=== PATIENT | male | born 1950 | race Caucasian/White ===

== ENCOUNTER 2016-06-25 13:29 | Emergency (ER) | payer MEDICARE, MEDICAID ==
[~2016-06-25] VITALS: Ht 188 cm; Wt 74.8 kg
[~2016-06-25 13:29] MED LIST: ALDACTONE 25MG25 MG PO; AMERINET CHOICE1 G1 IV; ASPIR-LOW81 MG PO; BACLOFEN 10MG T10 MG PO; BISAC-EVAC10 MG PR; CELEXA20 M1 PO; COGENTIN GENERIC1 MG PO; DEPAKOTE ER500 MG PO; DOCUSATE SODIU100 MG PO; KLONOPIN 0.5MG0.5 MG PO; LEVAQUIN500 MG PO; LIQUITEARS 15 M15 M1 OP; MIRALAX(PO17 GM/1 PA PO; MOTRIN 400MG.400 MG PO; MULTIPLE VITAMI1 T12 PO; NORCO 325 MG-51 TAB PO; PHENYTOIN 100M100 MG PO; REMERON15 MG PO; ROBAXIN 500 MG500 MG PO; TYLENOL ES500 MG PO; VITAMIN C100 M3 PO; ZANTAC 150150 MG PO
[2016-06-25] MEDS ORDERED: ARTIFICIAL TEARS OP (13:36)
[2016-06-25] MEDS ORDERED: BACLOFEN 10MG T10 MG PO (13:37)
[2016-06-25] MEDS ORDERED: COGENTIN GENERIC1 MG PO (13:37)
[2016-06-25] MEDS ORDERED: ASPIRIN 81MG TA81 MG PO (13:37)
[2016-06-25] MEDS ORDERED: CERTAVITE PO (13:38)
[2016-06-25] MEDS ORDERED: KLONOPIN 0.5MG0.5 MG NG (13:38)
[2016-06-25] MEDS ORDERED: DEPAKOTE 125MG125 MG PO ×2 (13:40→13:41)
[2016-06-25 13:41] LABS: LYMPH # 3.9 K/mm3 (0.7-4.5); LYMPH % 35.5 % (10-50)
[2016-06-25] MEDS ORDERED: COL-RITE250 MG PO (13:42)
[2016-06-25] MEDS ORDERED: IBUPROFEN400 MG PO (13:42)
--- NOTE | 2016-06-25 13:42 | Emergency Room Report ---
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 "JUST NOT RIGHT" IS WHAT THE NH REPORTED. EXTENSIVE NEUROLOGICALLY EFFECTIVE HISTORY. SEE CHART. 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 N Clinical Suspician of Infection? N Mental Status: 1 - Regular (Normal Baseline) Sepsis Risk:Low Sepsis Risk Have you (or family members/close friends) recently traveled outside the [place]? N If Yes, where/when: Have you had exposure to infectious disease within the past month? TB? Other? Specify: NH patient who is baseline contracted with dysphagia, nonverbal, hx PD, sent by NH for feeding difficulty noted today. Is on Dilantin and Depakote but no seizure activity reported. ROS obtained from EMS and NH staff, as well as ED staff who have cared for patient in past. Source patient, RN notes reviewed, EMS, snf records ALLERGIES Coded Allergies: No Known Allergies (06/25/16) Home Medications Reported Medications Spironolactone (Aldactone) 25 MG PO DAILY Acetaminophen (Tylenol XS 500MG) 500 MG PO Q4HP PRN PAIN,FEVER Divalproex Sodium (Depakote ER) 1,500 MG PO QHS Artificial Tear Ointment (Artificial Tears Eye Oint) 1 JENNY OP BID ASPIRIN (Aspirin) 81 MG PO DAILY BACLOFEN (Baclofen) 10 MG PO TID BENZTROPINE MESYLATE (COGENTIN 1MG TAB) 0.5 MG PO BID MULTIVITS W-MIN/FERROUS GLUC (Certa Nithin Liquid) 240 ML PO DAILY Clonazepam (Klonopin 0.5MG) 0.5 MG NG BID Divalproex Sodium (Depakote Sprinkle) 500 MG PO BID Divalproex Sodium (Depakote) 750 MG PO DAILY Docusate Sodium (Col-Rite) 250 MG PO BID IBUPROFEN MICRONIZED (IBUPROFEN 400MG) 400 MG PO Q8H PRN PAIN Mirtazapine (Remeron) 15 MG PO QHS PHENYTOIN SODIUM EXTENDED (Phenytoin Sodium Extended) 100 MG PO QAM Polyethylene Glycol 3350 (Miralax) 17 GM PO DAILY HYDROCODONE 5MG/APAP 325MG (Hydrocodon-Acetaminophen 5-325) 1 TAB PO BID Ranitidine Hcl (Zantac) 150 MG PO BID Spironolactone (Aldactone 100MG) 100 MG PO DAILY Ascorbic Acid (Vitamin C) 1,000 MG PO DAILY ARGININE/GLUTAMINE/CALCIUM HMB (Germán Packet) 1 PDR PO BID History Medical History General CAD? No Angina: No [place]: No Hypertension? Yes Hyperlipidemia? No CHF? Yes DVT? No PE? No COPD? No Asthma? No Anemia? Yes GERD? Yes Gastric ulcers? No GI Bleed? No Hernia? No Thyroid Problems? No Hypothyroidism? No CVA? No Seizures? Yes Diabetes? No Renal Insuffiency? No End Stage Renal Disease? No UTI? Yes Stones? No BPH? No GB Disease: No Nephritic Syndrome? No Asplenia? No Hepatitis? No Sickle Cell Disease? No Arthritis? No Migraines? No Cataracts? No Glaucoma? No MRSA? No HIV? No TB? No Anxiety? No Depression? Yes Cancer? No More? Yes Additional hx: DEMENTIA, AUTISTIC D/O, OSTEOARTHRITIS, PARKINSONS Immunization Hx Ped.Immunizations UTD Yes DT/Tetanus Unknown Flu Refused Pneumonia Unknown Surgical Hx Previous Surgery?Y Appendectomy Social History Smoking Hx Smoker: Never Smoker Tobacco: No Type N/A Packs/day N/A Are you/the child exposed to second-hand smoke: No Alcohol Alcohol: No Review of Systems All Other Systems Reviewed and Negative Psychiatric/Neurological see HPI Physical Exam Vital Signs Vital Signs Date Time Temp Pulse Resp B/P Pulse O2 O2 Flow FiO2 Ox Delivery Rate 06/25 1501 72 18 146/72 97 06/25 1416 70 18 129/80 97 06/25 1333 98.5 69 18 164/76 96 General Appearance normal appearance, WD/WN, no apparent distress (nonverbal) Neck normal inspection (patient contracted) Respiratory Status Yes: trachea midline, chest symmetrical, non tender chest. No: respiratory distress, tender on palpation, use of accessory muscles, pain on inspiration, pain on expiration, productive cough, non productive cough. Lung Sounds bilateral: normal breath sounds, lungs clear. Cardiovascular normal exam, regular rate/rhythm, no peripheral edema, no gallop, no JVD, no murmur, no rub Gastrointestinal normal bowel sounds, normal exam, non tender, soft, no organomegaly Extremities extremely contracted all four extremities, no gross edema, trauma, or asymmetry noted. Neurologic Alert, extremely contracted all four extremities, makes smacking movements with lips but no nystagmus; is nonverbal baseline. NIHSS very limited tool due to baseline gross neurological deficits today. Skin intact, normal color Medical Decision Making LABS/Meds/Orders Pt receiving controlled substance in ED? No Results/Orders Laboratory Tests 06/25/16 1335: Urine Color YELLOW, Urine Appearance CLOUDY, Urine pH 8.0, Ur Specific [place] 1.015, Urine Protein TRACE H, Urine Ketones NEGATIVE, Urine Blood 2+ H, Urine Nitrate NEGATIVE, Urine Bilirubin NEGATIVE, Urine Urobilinogen 0.2, Ur Leukocyte Esterase 1+ H, Urine RBC 3-5, Urine WBC 3-5, Ur Squamous Epith Cells 3-5, Amorphous Sediment 1+, Urine Bacteria 4+, Urine Mucus 2+, Urine Glucose NEGATIVE 06/25/16 1325: Sodium 145, Potassium 4.1, Chloride 106, Carbon Dioxide 31, BUN 39 H, Creatinine 0.4 L, Estimated Creat Clear 200, Estimated GFR (MDRD) 217, Glucose 71 L, Calcium 9.3, Total Bilirubin 0.2, AST 14 L, ALT 19, Alkaline Phosphatase 86, Creatine Kinase 25 L, CK-MB (CK-2) Rel Index 4.8 H, CK and CKMB Interp 1.2 , Troponin I 0.03, Total Protein 7.2, Albumin 2.8 L, Globulin 4.4 H, Albumin/ Globulin Ratio 0.6 L, WBC 11.1 H, RBC 4.51 L, Hgb 15.1, Hct 44.4, MCV 98.3 H , RDW 14.9, Plt Count 396, MPV 8.9, Gran % 41.4, Gran # 4.6, Lymphocytes % 35.5, Monocytes % 7.3, Eosinophils % 14.7 H, Basophils % 1.1, Lymphocytes # 3.9, Monocytes # 0.8, Eosinophils # 1.6 H, Basophils # 0.1, PUBS MCHC 33.9, MCH 33.3 H, Phenytoin 33.0 *H, Valproic Acid 44.3 L Current Medication Orders Sig/Salvador Start time Last Medication Dose Route Stop Time Status Admin Levofloxacin 0 .STK-MED ONE 06/25 1452 DC .ROUTE Levofloxacin 500 MG ONCE ONE 06/25 1445 DC 06/25 PO 06/25 1446 1456 Sodium Chloride 10 ML PRN PRN 06/25 1345 AC IV 06/26 1331 Orders Procedure Date/time Status DIET-NOTHING BY MOUTH 06/25 D Active ELECTROCARDIOGRAM REQUEST 06/25 1419 Active CULTURE, URINE 06/[address] HEAD REQ 06/25 1332 Complete IV SALINE LOCK 06/25 1332 Active VALPROIC ACID (DEPAKENE) 06/25 1332 Complete URINALYSIS/COMPLETE 06/25 1332 Complete PHENYTOIN (DILANTIN) 06/25 1332 Complete CBC WITH AUTO DIFF 06/25 1332 Complete CARDIAC ENZYMES 06/25 1332 Complete CHEM 12 PROFILE 06/25 1332 Complete 12 LEAD EKG-RAINA (INITIAL) 06/25 UNK Active CM/EKG CM/EKG EKG rate (60 NSSTchanges seen 06/18), NSR, rhythm, no ectopy, normal QRS, normal AK, normal EKG (occ APC's; NSST changes. ) XRAY/CT/US XRAY/CT/US XRAY chest XR interpretation by reviewed by me (report reviewed) Xray Results normal/NAD (poss R perihilar infiltrate) CT head CT interpretation by reviewed by me, discussed w/radiologist Time results known: 1406 CT Results no interval change since [address] Veras: grossly enlarged ventricles, no acute bleeding or infarct reported. Departure Departure Time of Disposition 1516 Disposition DC/XFER to an SNF Clinical Impression Primary Impression: Dilantin toxicity Qualifiers: Encounter type: initial encounter Injury intent: accidental or unintentional Qualified Code: T42.0X1A - Poisoning by hydantoin derivatives, accidental (unintentional), initial encounter Secondary Impressions: UTI (urinary tract infection) Qualifiers: Urinary tract infection type: acute cystitis Hematuria presence: without hematuria Qualified Code: N30.00 - Acute cystitis without hematuria Condition STABLE Referrals HEIKE MASTERS (Family) Patient Instructions Urinary Tract Infection Additional Instructions Call Dr. Bullock for further instruction regarding administration of Dilantin and when to recheck level; hold Dilantin for today unless otherwise advised by Dr. Bullock. Rx Levaquin. Has definite UTI and questionable pneumonia seen on CXR today. Discharge Counseling Counseled pt/family regarding diagnosis, test results, medications/RX, home care, follow up needs Prescriptions Current Visit Scripts Levofloxacin (Levaquin 500MG) 500 MG PO DAILY #6 TAB ED Critical Care Critical Care No at 1526
[2016-06-25] MEDS ORDERED: MIRTAZAPINE7.5 MG PO (13:43)
[2016-06-25] MEDS ORDERED: PHENYTOIN100 MG PO (13:44)
[2016-06-25] MEDS ORDERED: ZANTAC 150150 MG PO (13:44)
[2016-06-25] MEDS ORDERED: MIRALAX17 GM/PACK PO (13:44)
[2016-06-25] MEDS ORDERED: HYDROCODONE-APA1 TA1 PO (13:44)
[2016-06-25] MEDS ORDERED: VITAMIN C500 M1 PO (13:45)
[2016-06-25] MEDS ORDERED: ALDACTONE100 MG PO (13:45)
[2016-06-25] MEDS ORDERED: JUVEN1 PDR PO (13:45)
[2016-06-25 13:47] LABS: URINE BILIRUBIN - DIPSTICK NEGATIVE (NEG); URINE BLOOD 2+ (NEG)
[2016-06-25 13:50] LABS: HEMOGLOBIN 15.1 g/dL (14.1-18.0)
--- NOTE | 2016-06-25 14:33 | RADIOLOGY REPORT PS360 ---
CHEST-PORTABLE ORDERING PHYSICIAN : Analilia Carr MD PATIENT AGE: 65 years GENDER: Male INDICATION: AMS Elevated white count TECHNIQUE: AP portable upright chest COMPARISON: Previous 06/16/2015 CXR FINDINGS . With diaphragms only down to the anterior third rib on right and anterior fourth rib on left. Previous portable study showed inspiration doubt anterior fifth rib This poor inspiration crowds markings bilaterally and limits the study. With this there is accentuation of markings particularly at the perihilar regions along with mild accentuation of vascularity. Question skull, suspect right perihilar infiltrate/central infiltrate on this current study... Question minimal this minimal perihilar infiltrate may extend towards right infrahilar area.. Than may also be some associated atelectasis at here noting the more pronounced elevation right elevation right suggesting such.. The heart appears normal in size. Pulmonary vascularity appears slightly more generous. Upper normal. No pleural effusion. No chest wall abnormality. IMPRESSION: Suboptimal inspiration crowds markings a limited study However I am suspect of a perihilar infiltrate on right. Suspect minimal infiltrate and atelectasis right infrahilar towards medial right lower lobe. Clinical correlation required
--- NOTE | 2016-06-25 14:58 | RADIOLOGY REPORT PS360 ---
CT HEAD WITHOUT CONTRAST CT BONE WINDOWS ORDERING PHYSICIAN : Analilia Carr MD PATIENT AGE: 65 years GENDER: Male HISTORY: AMS minimal status changes rule out CVA Long-standing severe hydrocephalus PROCEDURE: Routine axial images head with brain & bone windows without contrast COMPARISON: Previous studies from June 2015 as well as 2004 utilized FINDINGS We again see severe dramatic hydrocephalus bilaterally similar to previous studies Again prominent thickening of overlying cerebral cortex from this long-standing hydrocephalus. Severely Dilated lateral ventricles. Prominent Dilated third ventricle noted as well. Same pattern was seen on previous studies and is long-standing. No acute hemorrhage or territorial infarct evident. No subdural /extra-axial collection. No mass lesion Posterior fossa appears stable and satisfactory CT Bone Windows: The skull is intact. Generous Bilateral ethmoid sinusitis again observed similar to previous 2016 exam- perhaps slight improvement Significant improvement at left left maxillary sinus since 2016. Only small residual air-fluid level left maxillary sinus. Medial displacement, medial bulge at the medial wall left maxillary sinus which which impaction narrows the left nasal airway. Mild mucosal thickening posterior right maxillary sinus.. Trace mucosal thickening frontal sinuses. Sphenoid sinuses unremarkable. Mastoid air cells and middle ear & IACs are unremarkable. IMPRESSION: 1. No acute intracranial findings. No significant change since last years study 2.. Dramatic, severe hydrocephalus similar to 2003 & 2015 CT. Findings compatible with long-standing aqueduct stenosis Severely dilated lateral as well as third ventricle Prominent diffuse cortical thinning overlying the these dilated ventricles. 3. Prominent Bilateral ethmoid sinusitis again evident. Slight improvement since 2016. 4. Improvement of previous acute left maxillary sinusitis since 2016, now with only scant residual air-fluid levelToday
[2016-06-25] MEDS ORDERED: LEVAQUIN500 MG PO (15:20)
[2016-06-25 15:46] VITALS: BP 122/78
== END 2016-06-25 15:34 ==
LOC: ER 13:29
PROVIDERS: Emergency Medicine
DX: T42.0X1A Poisoning by hydantoin derivatives, accidental (unintentional), initial encounter (principal); N30.00 Acute cystitis without hematuria; F41.9 Anxiety disorder, unspecified; I10 Essential (primary) hypertension; K21.9 Gastro-esophageal reflux disease without esophagitis; G20 Parkinson's disease; F02.80 Dementia in other diseases classified elsewhere, unspecified severity, without behavioral disturbance, psychotic disturbance, mood disturbance, and anxiety

== ENCOUNTER 2016-09-09 09:18 | Observation (INO) | payer MEDICARE, MEDICAID ==
[~2016-09-09] VITALS: Ht 188 cm; Wt 81.6 kg
[~2016-09-09 09:18] MED LIST changes: +ALDACTONE100 MG PO; +ARTIFICIAL TEARS OP; +ASPIRIN 81MG TA81 MG PO; +CERTAVITE PO; +COL-RITE250 MG PO; +DEPAKOTE 125MG125 MG PO; +HYDROCODONE-APA1 TA1 PO; +IBUPROFEN400 MG PO; +JUVEN1 PDR PO; +KLONOPIN 0.5MG0.5 MG NG; +MIRALAX17 GM/PACK PO; +MIRTAZAPINE7.5 MG PO; +PHENYTOIN100 MG PO; +VITAMIN C500 M1 PO
[2016-09-09 09:25] VITALS: BP 148/94
--- NOTE | 2016-09-09 09:34 | Emergency Room Report ---
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 N Clinical Suspician of Infection? N Mental Status: 1 - Regular (Normal Baseline) Sepsis Risk:Low Sepsis Risk Have you (or family members/close friends) recently traveled outside the [place]? N If Yes, where/when: Have you had exposure to infectious disease within the past month? N TB? Other? Specify: Source patient, RN notes reviewed, EMS, senior living records, old records Exam Limitations no limitations Comment pt with recent failed swallowing eval - pt with sig dysphagia - pt sent fro eval and prob g tube Cardiac Chest Pain Chest pain indicative of cardiac No Timing/Duration this morning Severity moderate ALLERGIES Coded Allergies: No Known Allergies (06/25/16) Home Medications Active Scripts Levofloxacin (Levaquin 500MG) 500 MG PO DAILY #6 TAB Prov: 06/25/16 Reported Medications Spironolactone (Aldactone) 25 MG PO DAILY Acetaminophen (Tylenol XS 500MG) 500 MG PO Q4HP PRN PAIN,FEVER Divalproex Sodium (Depakote ER) 1,500 MG PO QHS Artificial Tear Ointment (Artificial Tears Eye Oint) 1 JENNY OP BID ASPIRIN (Aspirin) 81 MG PO DAILY BACLOFEN (Baclofen) 10 MG PO TID BENZTROPINE MESYLATE (COGENTIN 1MG TAB) 0.5 MG PO BID MULTIVITS W-MIN/FERROUS GLUC (Certa Nithin Liquid) 240 ML PO DAILY Clonazepam (Klonopin 0.5MG) 0.5 MG NG BID Divalproex Sodium (Depakote Sprinkle) 500 MG PO BID Divalproex Sodium (Depakote) 750 MG PO DAILY Docusate Sodium (Col-Rite) 250 MG PO BID IBUPROFEN MICRONIZED (IBUPROFEN 400MG) 400 MG PO Q8H PRN PAIN Mirtazapine (Remeron) 15 MG PO QHS PHENYTOIN SODIUM EXTENDED (Phenytoin Sodium Extended) 100 MG PO QAM Polyethylene Glycol 3350 (Miralax) 17 GM PO DAILY HYDROCODONE 5MG/APAP 325MG (Hydrocodon-Acetaminophen 5-325) 1 TAB PO BID Ranitidine Hcl (Zantac) 150 MG PO BID Spironolactone (Aldactone 100MG) 100 MG PO DAILY Ascorbic Acid (Vitamin C) 1,000 MG PO DAILY ARGININE/GLUTAMINE/CALCIUM HMB (Germán Packet) 1 PDR PO BID History Medical History General CAD? No Angina: No [place]: No Hypertension? Yes Hyperlipidemia? No CHF? Yes DVT? No PE? No COPD? No Asthma? No Anemia? Yes GERD? Yes Gastric ulcers? No GI Bleed? No Hernia? No Thyroid Problems? No Hypothyroidism? No CVA? No Seizures? Yes Diabetes? No Renal Insuffiency? No End Stage Renal Disease? No UTI? Yes Stones? No BPH? No GB Disease: No Nephritic Syndrome? No Asplenia? No Hepatitis? No Sickle Cell Disease? No Arthritis? No Migraines? No Cataracts? No Glaucoma? No MRSA? No HIV? No TB? No Anxiety? No Depression? Yes Cancer? No More? Yes Additional hx: DEMENTIA, AUTISTIC D/O, OSTEOARTHRITIS, PARKINSONS Immunization Hx DT/Tetanus Unknown Flu Refused Pneumonia Unknown Surgical Hx Previous Surgery?Y Appendectomy Social History Smoking Hx Smoker: Former Smoker Tobacco: Yes Type Cigarettes Packs/day N/A Alcohol Alcohol: No Drugs none Review of Systems All Other Systems Reviewed and Negative Constitutional denies fever Eyes denies drainage ENT see HPI. Respiratory denies cough Cardiovascular denies chest pain, denies palpitations Gastrointestinal see HPI, denies vomiting, other Genitourinary denies: frequency. Musculoskeletal denies joint swelling Skin denies rash Psychiatric/Neurological denies headache, denies seizure Physical Exam Vital Signs Vital Signs Date Time Temp Pulse Resp B/P Pulse O2 O2 Flow FiO2 Ox Delivery Rate 09/09 1027 77 18 148/94 97 09/09 0925 98.1 77 18 148/94 97 - WBC >12,000 or <4,000 or 10% bands? 2 or more SIRS Criteria Met? B/P:148/94 MAP:112 Creatinine >2.0? UA output<0.5ml/kg/hr for 2 hrs? Platelet count >100,000? Lactate >2.0mmol/1? INR >1.2 or PTT > than 60 sec? Evidence of Organ Dysfunction? Provider documented clinical suspician of infection? N Sepsis Criteria Count: 0 Sepsis Risk: Low Sepsis Risk General Appearance no apparent distress Eye Exam - bilateral eye PERRL, bilateral eye EOMI Ear, Nose, Throat normal ENT inspection Neck limited range of motion Respiratory Status No: respiratory distress. Lung Sounds bilateral: decreased breath sounds. Cardiovascular regular rate/rhythm, systolic murmur Peripheral Pulses Pulses normal Yes Gastrointestinal soft, no organomegaly, no pulsatile mass, no guarding, no rebound Extremities no calf tenderness Strength 4 Upper Ext (L), 4 Upper Ext (R), 4 Lower Ext (L), 4 Lower Ext (R) Neurologic awake with no focal changes Reflexes Reflexes normal No Mental status no focal changes Skin intact Medical Decision Making LABS/Meds/Orders Pt receiving controlled substance in ED? No Results/Orders Laboratory Tests 09/09/16 0945: Sodium 144, Potassium 3.6, Chloride 106, Carbon Dioxide 32, BUN 27 H, Creatinine 0.3 L, Estimated Creat Clear 274 H, Estimated GFR (MDRD) 303, Glucose 96, Calcium 9.2, Total Bilirubin 0.3, AST 25, ALT 28, Alkaline Phosphatase 94, Creatine Kinase 64, CK-MB (CK-2) Rel Index 5.6 H, CK and CKMB Interp 3.6, Troponin I 0.04, Total Protein 7.8, Albumin 3.0 L, Globulin 4.8 H, Albumin/Globulin Ratio 0.6 L, WBC 6.9, RBC 4.51 L, Hgb 14.7, Hct 45.8, MCV 101.6 H, RDW 13.9, Plt Count 276, MPV 7.0 L, Gran % 55.3, Gran # 3.8, Lymphocytes % 33.5, Monocytes % 6.5, Eosinophils % 4.2, Basophils % 0.4, Lymphocytes # 2.3, Monocytes # 0.5, Eosinophils # 0.3, Basophils # 0.0, PUBS MCHC 32.2, MCH 32.7 H, Urine Color YELLOW, Urine Appearance CLOUDY, Urine pH 7.0, Ur Specific [place] 1.010, Urine Protein NEGATIVE, Urine Ketones NEGATIVE, Urine Blood TRACE-INTACT, Urine Nitrate NEGATIVE, Urine Bilirubin NEGATIVE, Urine Urobilinogen 1.0, Ur Leukocyte Esterase NEGATIVE, Urine RBC OCC, Urine WBC 3-5, Urine Bacteria 4+, Urine Mucus OCC, Urine Glucose NEGATIVE Current Medication Orders Sig/Salvador Start time Last Medication Dose Route Stop Time Status Admin Sodium Chloride 10 ML PRN PRN 09/09 944 AC IV 09/10 930 Orders Procedure Date/time Status Decision to admit 09/09 1052 Active CULTURE, URINE 09/09 944 Active ELECTROCARDIOGRAM REQUEST 09/10 931 Active CHEST-PORTABLE 09/10 931 Active IV SALINE LOCK 09/10 931 Active URINARY CATHETER INSERT 09/10 931 Active URINALYSIS/COMPLETE 09/10 931 Complete COMPLETE METABOLIC PANEL 09/10 931 Complete CBC WITH AUTO DIFF 09/10 931 Complete CARDIAC ENZYMES 09/10 931 Complete CM/EKG CM/hospital secretary Rhythm Normal Sinus Rhythm EKG non-spec. ST/Twave chgs XRAY/CT/US XRAY/CT/US XRAY chest XR interpretation by reviewed by me Xray Results normal/NAD Departure Departure Time of Disposition 1054 Disposition Still a Patient Clinical Impression Primary Impression: Dysphagia Qualifiers: Dysphagia type: unspecified Qualified Code: R13.10 - Dysphagia, unspecified Condition STABLE Referrals JASON WINTERS MD discussed with dr winters ED Critical Care Critical Care No at 1103
[2016-09-09 10:06] LABS: HEMOGLOBIN 14.7 g/dL (14.1-18.0); LYMPH # 2.3 K/mm3 (0.7-4.5); LYMPH % 33.5 % (10-50)
[2016-09-09 10:08] LABS: URINE BILIRUBIN - DIPSTICK NEGATIVE (NEG); URINE BLOOD TRACE-INTACT (NEG)
[2016-09-09 12:24] VITALS: BP 188/111
[2016-09-09 16:16] VITALS: BP 135/70
--- NOTE | 2016-09-09 16:19 | HISTORY AND PHYSICAL REPORT ---
History of Present Illness Chief Complaint: Feeding difficulty History of Present Illness: This is a 65 old gentleman who presents after a failed dysphasia evaluation. Recommendations are for permanent feeding tube placement. Past Medical History Reports: congestive heart failure, hypertension, seizure disorder. Surgical History Previous Surgery?Y Appendectomy Allergies Coded Allergies: No Known Allergies (09/09/16) Medications: Active Scripts Levofloxacin (Levaquin 500MG) 500 MG PO DAILY #6 TAB Prov: 06/25/16 Reported Medications Spironolactone (Aldactone) 25 MG PO DAILY Acetaminophen (Tylenol XS 500MG) 500 MG PO Q4HP PRN PAIN,FEVER Divalproex Sodium (Depakote ER) 1,500 MG PO QHS ASPIRIN (Aspirin) 81 MG PO DAILY BACLOFEN (Baclofen) 10 MG PO TID BENZTROPINE MESYLATE (COGENTIN 1MG TAB) 0.5 MG PO BID MULTIVITS W-MIN/FERROUS GLUC (Certa Nithin Liquid) 240 ML PO DAILY Clonazepam (Klonopin 0.5MG) 0.5 MG NG BID Divalproex Sodium (Depakote Sprinkle) 500 MG PO BID Divalproex Sodium (Depakote) 750 MG PO DAILY Docusate Sodium (Col-Rite) 250 MG PO BID IBUPROFEN MICRONIZED (IBUPROFEN 400MG) 400 MG PO Q8H PRN PAIN Mirtazapine (Remeron) 15 MG PO QHS PHENYTOIN SODIUM EXTENDED (Phenytoin Sodium Extended) 100 MG PO QAM Polyethylene Glycol 3350 (Miralax) 17 GM PO DAILY HYDROCODONE 5MG/APAP 325MG (Hydrocodon-Acetaminophen 5-325) 1 TAB PO BID Ranitidine Hcl (Zantac) 150 MG PO BID Spironolactone (Aldactone 100MG) 100 MG PO DAILY Ascorbic Acid (Vitamin C) 1,000 MG PO DAILY ARGININE/GLUTAMINE/CALCIUM HMB (Germán Packet) 1 PDR PO BID Family history Postive for: unknown. Smoking Hx Tobacco: Yes Smoker: Former Smoker Type: Cigarettes Packs/day: N/A Are you/the child exposed to second-hand smoke: No Alcohol Alcohol: No Hx of Drug Use Drug Use? No Review of Systems Constitutional No: chills. Skin No: bruising. Immune/allergy No: anaphalaxis. Eyes No: discharge. ENT No: nose bleed. Respiratory No: pneumonia. GI Positive for: dysphagia. No: hematemeis, hematochezia, melena. (male) No: hematuria. Heme No: petechia. Endocrine No: polydipsia. Neurological No: change in LOC. Psychiatric No: anxious. Physical Exam VS/I&O Vital Signs Date Time Temp Pulse Resp B/P Pulse O2 O2 Flow FiO2 Ox Delivery Rate 09/09 1616 97.0 75 16 135/70 98 ROOM AIR 09/09 1224 75 09/09 1224 97.6 75 16 188/111 04 1224 91 ROOM AIR 09/09 1224 97.6 75 16 188/111 91 ROOM AIR 09/09 1133 98.1 77 18 148/94 97 / 1027 77 18 148/94 97 09/09 0925 98.1 77 18 148/94 97 Exam General appearance no acute distress, awake Neck full ROM Respiratory no distress Cardiovascular regular rate and rhythm Abdomen soft Musculoskeletal painless ROM Psychiatric normal mood Dx/assessment/plan Problem List 1. Dysphagia Code status: DNR Plan: PEG - the risks and benefits will be discussed with his care providers. Tentatively, plans are for gastrostomy tube placement in the morning. at 1625
--- NOTE | 2016-09-09 17:18 | RADIOLOGY REPORT PS360 ---
CHEST-PORTABLE COMPARISON: Portable supine AP chest 06/25/2016 HISTORY: Shortness of breath TECHNIQUE: Portable upright chest FINDINGS: Is a somewhat poor inspiration however lung [place] are clear of infiltrate. There is borderline cardio megaly without failure. 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 There is no pleural fluid. IMPRESSION: The poor inspiration borderline cardio megaly, no acute chest pathology noted
[2016-09-09 20:07] VITALS: BP 164/90
[2016-09-09 23:37] VITALS: BP 164/90
[2016-09-10] VITALS (13 sets, daily range): BP systolic 131–164; BP diastolic 43–93
[2016-09-10 06:55] LABS: HEMOGLOBIN 13.5 g/dL (14.1-18.0); LYMPH # 1.8 K/mm3 (0.7-4.5); LYMPH % 28.4 % (10-50)
--- NOTE | 2016-09-10 07:15 | PHARMACY CLINIC NOTE ---
Patient Demographics Patient Demographics Admission date: 09/09/16 Date: 09/10/16 Time: 0715 Allergies Coded Allergies: No Known Allergies (09/09/16) HEIGHT- FT: 6 IN: 2.00 K.889 VTE General Information Labs: Laboratory Tests 09/10 09/09 0630 0945 Hematology Hgb (14.1 - 18.0 g/dL) 13.5 L 14.7 Hct (42.0 - 52.0 %) 42.0 45.8 Plt Count (142 - 424 K/mm3) 269 276 Disclaimer The following section includes nursing documentation that has been pulled in for pharmacy review. Patient's VTE score: 4 Patient's VTE Risk: LOW RISK Clinical trial participant? No VTE prophylaxis NQF [id number] VTE prophylaxis ordered? Yes Type of prophylaxis/treatment: SANTOS at 0715
--- NOTE | 2016-09-10 07:27 | Operative Note ---
Surgeon/Diagnoses Surgeon/Sap Solution Manager Consultant(s) Date of procedure: 09/10/16 Surgeon: MD Jed Winters Diagnoses Pre-op diagnosis: Dysphagia Feeding difficulty Post-op diagnosis same Procedure Procedure Procedure: Percutaneous endoscopic gastrostomy tube placement Indications: RAFAEL MUSE is a 65 year-old Male with a history of feeding difficulty and recent failed dysphagia evaluation. Findings: Gastrostomy tube anchored a 4 cm Procedure Description: After informed consent was obtained, the patient was taken to the endoscopy suite. Monitored anesthesia care ensued. The gastroscope was advanced. The stomach was entered and insufflated. Transillumination and impulse were both easily seen in the LEFT upper quadrant. The LEFT upper quadrant was prepped and draped in a sterile fashion. After infiltration with local anesthetic a small transverse incision was made. Under direct visualization the large bore needle was placed in position and the guidewire was placed through the Angiocath. The guidewire was retrieved with the snare. The gastrostomy tube was connected to the guidewire and it was then carefully pulled back through in an antegrade fashion. The tube was anchored at 4 cm. The endoscope was once again passed back into the gastric lumen and no sign of bleeding was noted. The bumper was in good position and good rotation was also noted. The gastroscope was carefully removed and the patient was transferred to recovery. EBL (ml): 1 Anesthesia: Monitored anesthesia care Complications: No immediate Specimens: None Disposition Disposition: Stable to recovery from where he will be transferred back to the floor. at [id number]
--- NOTE | 2016-09-10 07:34 | SURGEON PROGRESS NOTE ---
Subjective data Subjective data: Stable to recovery after PEG. Objective data Vitals,I&O,and Labs: Vital signs, intake and output,and available lab data for the last 24 hours is as noted below. Vital Signs Date Time Temp Pulse Resp B/P Pulse O2 O2 Flow FiO2 Ox Delivery Rate 09/10 0727 98 09/10 0427 97.6 82 16 131/84 95 ROOM AIR 09/09 2337 97.1 86 16 164/90 93 09/09 2006 97.1 86 16 164/90 93 ROOM AIR 09/09 1616 97.0 75 16 135/70 98 ROOM AIR 09/09 1224 75 09/09 1224 97.6 75 16 188/111 09/09 1224 91 ROOM AIR 09/09 1224 97.6 75 16 188/111 91 ROOM AIR 09/09 1133 98.1 77 18 148/94 97 09/09 1027 77 18 148/94 97 09/09 0925 98.1 77 18 148/94 97 / 1500 09/09 2300 09/10 0700 Intake Total 0 729 Output Total 500 250 Balance 0 -500 479 Intake, IV 729 Intake, Oral 0 Output, Urine 500 250 Patient 79.89 kg 79.889 kg Weight Laboratory Tests Test Result Date Time Chemistry Sodium (mmoL/L) 147 09/10 0630 Potassium (mmoL/L) 3.4 09/10 06 Chloride (mmoL/L) 109 09/10 0630 Carbon Dioxide (mmoL/L) 28 09/10 629 BUN (mg/dL) 30 09/10 0630 Creatinine (mg/dL) 0.4 09/10 629 Estimated Creat Clear (ML/MIN) 214 09/10 629 Estimated GFR (MDRD) (ML/MIN) 217 09/10 629 Glucose (mg/dL) 71 09/10 0630 Calcium (mg/dL) 8.9 09/10 629 Total Bilirubin (mg/dL) 0.3 09/09 0845 AST (U/L) 25 09/09 944 ALT (U/L) 28 09/09 944 Alkaline Phosphatase (U/L) 94 09/09 944 Creatine Kinase (U/L) 64 09/09 944 CK-MB (CK-2) Rel Index (U/L) 5.6 09/09 944 CK and CKMB Interp (ng/mL) 3.6 09/09 944 Troponin I (ng/mL) 0.04 09/09 944 Total Protein (gm/dL) 7.8 09/09 944 Albumin (gm/dL) 3.0 09/09 944 Globulin (gm/dL) 4.8 09/09 944 Albumin/Globulin Ratio 0.6 09/09 944 Hematology WBC (K/MM3) 6.4 09/10 629 RBC (M/mm3) 4.11 09/10 629 Hgb (g/dL) 13.5 09/10 629 Hct (%) 42.0 09/10 629 MCV (fl) 102.1 09/10 629 RDW (%) 13.9 09/10 629 Plt Count (K/mm3) 269 09/10 629 MPV (fl) 6.9 09/10 629 Gran % (%) 63.0 09/10 629 Gran # (K/mm3) 4.0 09/10 629 Lymphocytes % (%) 28.4 09/10 629 Monocytes % (%) 6.0 09/10 629 Eosinophils % (%) 2.2 09/10 629 Basophils % (%) 0.4 09/10 629 Lymphocytes # (K/mm3) 1.8 09/10 629 Monocytes # (K/mm3) 0.4 09/10 629 Eosinophils # (K/mm3) 0.1 09/10 629 Basophils # (K/MM3) 0.0 09/10 629 PUBS MCHC (g/dl) 32.3 09/10 629 Immunology MCH (pg) 33.0 09/10 629 Toxicology Phenytoin (ug/ml) 43.5 09/09 914 Valproic Acid (mcg/mL) < 0.7 09/09 914 Urines Urine Color YELLOW 09/09 944 Urine Appearance CLOUDY 09/09 944 Urine pH 7.0 09/09 944 Ur Specific [place] 1.010 09/09 944 Urine Protein (mg/dL) NEGATIVE 09/09 944 Urine Ketones (mg/dL) NEGATIVE 09/09 944 Urine Blood TRACE-INTACT 09/09 944 Urine Nitrate NEGATIVE 09/09 944 Urine Bilirubin NEGATIVE 09/09 944 Urine Urobilinogen (E.U./dL) 1.0 09/09 944 Ur Leukocyte Esterase NEGATIVE 09/09 944 Urine RBC (rbc/hpf) OCC 09/09 944 Urine WBC (wbc/hpf) 3-5 09/09 944 Urine Bacteria 4+ 09/09 944 Urine Mucus OCC 09/09 944 Urine Glucose NEGATIVE 09/09 944 Assessment findings Assessment Exam General appearance: no acute distress Cardiovascular: regular rate & rhythm Respiratory: no respiratory distress ABD: soft Patient plan Diagnoses: Feeding difficulty -gastrostomy tube placed this morning Dysphagia Plan: post-PEG orders at 0734
[2016-09-10] MEDS ORDERED: DILANTIN 50MG.50 MG PO (14:03)
[2016-09-11 03:56] VITALS: BP 150/77
[2016-09-11 07:38] VITALS: BP 138/74
--- NOTE | 2016-09-11 07:46 | POST-OP PROGRESS NOTE ---
See Addendum Post Op Subjective Data Patient is post-op day 1 Subjective data: Resting. Post op objective data Vitals,I&O,and Labs: Vital signs, intake and output,and available lab data for the last 24 hours is as noted below. Vital Signs Date Time Temp Pulse Resp B/P Pulse O2 O2 Flow FiO2 Ox Delivery Rate 09/11 0738 98.0 98 20 138/74 96 ROOM AIR 09/11 0356 97.8 96 18 150/77 95 ROOM AIR 09/10 2346 98.5 97 16 150/43 95 ROOM AIR 09/10 2010 99.3 94 18 138/66 97 ROOM AIR 09/10 1944 98.3 53 18 164/93 95 09/10 1710 98.3 53 20 164/93 95 ROOM AIR 09/10 1200 97.6 87 18 144/77 98 2 / 1100 98.0 88 18 136/85 97 2 / 1000 97.9 84 18 138/78 99 2 / 0930 97.7 85 18 140/78 97 2 / 0900 97.9 82 18 162/77 100 2 / 0845 98.0 84 20 152/77 100 2 / 0830 98.0 92 20 153/88 100 2 04/10 0815 97.9 81 20 153/77 100 2 04/10 0808 81 18 127/76 04/10 0806 81 18 127/76 04/10 0800 97.9 81 20 153/77 100 04/10 0800 97.9 84 20 143/90 100 04/10 0800 97.9 84 20 143/90 100 04/10 1500 09/10 2300 09/11 0700 Intake Total 0 1693 Output Total 500 650 Balance 0 -500 1043 Intake, IV 1693 Intake, Oral 0 Output, Urine 500 650 Patient 79.89 kg 81.647 kg Weight Laboratory Tests Test Result Date Time Chemistry Sodium (mmoL/L) 147 09/10 0630 Potassium (mmoL/L) 3.4 09/10 0630 Chloride (mmoL/L) 109 09/10 0630 Carbon Dioxide (mmoL/L) 28 09/10 0630 BUN (mg/dL) 30 09/10 0630 Creatinine (mg/dL) 0.4 09/10 0630 Estimated Creat Clear (ML/MIN) 214 09/10 0630 Estimated GFR (MDRD) (ML/MIN) 217 09/10 629 Glucose (mg/dL) 71 09/10 629 Calcium (mg/dL) 8.9 09/10 629 Total Bilirubin (mg/dL) 0.3 09/09 944 AST (U/L) 25 09/09 944 ALT (U/L) 28 09/09 944 Alkaline Phosphatase (U/L) 94 09/09 944 Creatine Kinase (U/L) 64 09/09 944 CK-MB (CK-2) Rel Index (U/L) 5.6 09/09 944 CK and CKMB Interp (ng/mL) 3.6 09/09 944 Troponin I (ng/mL) 0.04 09/09 944 Total Protein (gm/dL) 7.8 09/09 944 Albumin (gm/dL) 3.0 09/09 944 Globulin (gm/dL) 4.8 09/09 944 Albumin/Globulin Ratio 0.6 09/09 944 Hematology WBC (K/MM3) 6.4 09/10 629 RBC (M/mm3) 4.11 09/10 629 Hgb (g/dL) 13.5 09/10 629 Hct (%) 42.0 09/10 629 MCV (fl) 102.1 09/10 629 RDW (%) 13.9 09/10 629 Plt Count (K/mm3) 269 09/10 629 MPV (fl) 6.9 09/10 629 Gran % (%) 63.0 09/10 629 Gran # (K/mm3) 4.0 09/10 629 Lymphocytes % (%) 28.4 09/10 629 Monocytes % (%) 6.0 09/10 629 Eosinophils % (%) 2.2 09/10 629 Basophils % (%) 0.4 09/10 629 Lymphocytes # (K/mm3) 1.8 09/10 629 Monocytes # (K/mm3) 0.4 09/10 629 Eosinophils # (K/mm3) 0.1 09/10 629 Basophils # (K/MM3) 0.0 09/10 629 PUBS MCHC (g/dl) 32.3 09/10 629 Immunology MCH (pg) 33.0 09/10 629 Toxicology Phenytoin (ug/ml) 43.5 09/09 914 Valproic Acid (mcg/mL) < 0.7 09/09 914 Urines Urine Color YELLOW 09/09 944 Urine Appearance CLOUDY 09/09 944 Urine pH 7.0 09/09 944 Ur Specific [place] 1.010 09/09 944 Urine Protein (mg/dL) NEGATIVE 09/09 944 Urine Ketones (mg/dL) NEGATIVE 09/09 944 Urine Blood TRACE-INTACT 09/09 944 Urine Nitrate NEGATIVE 09/09 944 Urine Bilirubin NEGATIVE 09/09 944 Urine Urobilinogen (E.U./dL) 1.0 09/09 944 Ur Leukocyte Esterase NEGATIVE 09/09 944 Urine RBC (rbc/hpf) OCC 09/09 944 Urine WBC (wbc/hpf) 3-5 09/09 944 Urine Bacteria 4+ 09/09 944 Urine Mucus OCC 09/09 944 Urine Glucose NEGATIVE 09/09 944 Physical Exam VS/I&O Vital Signs Date Time Temp Pulse Resp B/P Pulse O2 O2 Flow FiO2 Ox Delivery Rate 09/11 0738 98.0 98 20 138/74 96 ROOM AIR 09/11 0356 97.8 96 18 150/77 95 ROOM AIR 09/10 2346 98.5 97 16 150/43 95 ROOM AIR 09/10 2009 99.3 94 18 138/66 97 ROOM AIR 09/10 1944 98.3 53 18 164/93 95 09/10 1710 98.3 53 20 164/93 95 ROOM AIR 09/10 1200 97.6 87 18 144/77 98 2 09/10 1100 98.0 88 18 136/85 97 2 09/10 1000 97.9 84 18 138/78 99 2 09/10 0930 97.7 85 18 140/78 97 2 09/10 0900 97.9 82 18 162/77 100 2 09/10 0845 98.0 84 20 152/77 100 2 09/10 0830 98.0 92 20 153/88 100 2 09/10 0815 97.9 81 20 153/77 100 2 / 0808 81 18 127/76 04/ 0806 81 18 127/76 09/10 0800 97.9 81 20 153/77 100 /10 0800 97.9 84 20 143/90 100 04/ 0800 97.9 84 20 143/90 100 I&O 04/11 0700 Intake Total 1693 Output Total 1150 Balance 543 Intake, IV 1693 Intake, Oral 0 Output, Urine 1150 Patient 81.647 kg Weight Exam General appearance no acute distress Respiratory areating well Cardiovascular regular rate and rhythm Abdomen soft (PEG site normal) Findings/Data Evaluation of the PEG site reveals a stable feeding tube with no sign of bleeding. The tube is easily rotatable. Post op patient plan Diagnoses: Dysphagia Feeding difficulty - overall, doing very well status post percutaneous endoscopic gastrostomy tube placement Plan: TFs as per PCP, d/c back to NH This inpt stay is expected to cross 2 MNs from start of care No at 0746
--- NOTE | 2016-09-11 07:51 | Discharge Summary Report ---
General Admit date: 09/09/16 Discharge date: 09/11/16 Admission Dx: Feeding difficulty Dysphagia Discharge Dx: Same Hospital course: The patient was admitted for observation after a failed outpatient dysphagia evaluation. A percutaneous endoscopic gastrostomy tube was placed on September 10, 2016. The patient tolerated the procedure and was deemed appropriate for discharge the following morning. Condition at discharge: stable Problem List Medical Problems Bacteremia Change in mental status Dilantin toxicity Dysphagia Staphylococcal sepsis UTI (urinary tract infection) Allergies Coded Allergies: No Known Allergies (09/09/16) [facility] Rec SD summary Medications Reported Medications Divalproex Sodium (Depakote Sprinkle) 500 MG PO 0800,1400 Divalproex Sodium (Depakote Sprinkle) 750 MG PO 2000 Mirtazapine 7.5 MG PO QHS Spironolactone (Aldactone) 25 MG PO DAILY Acetaminophen (Tylenol XS 500MG) 500 MG PO Q4HP PRN PAIN,FEVER ASPIRIN (Aspirin) 81 MG PO DAILY BACLOFEN (Baclofen) 10 MG PO TID BENZTROPINE MESYLATE (COGENTIN 1MG TAB) 0.5 MG PO BID MULTIVITS W-MIN/FERROUS GLUC (Certa Nithin Liquid) 240 ML PO DAILY Clonazepam (Klonopin 0.5MG) 0.5 MG NG BID Docusate Sodium (Col-Rite) 250 MG PO BID IBUPROFEN MICRONIZED (IBUPROFEN 400MG) 400 MG PO Q8H PRN PAIN Polyethylene Glycol 3350 (Miralax) 17 GM PO DAILY HYDROCODONE 5MG/APAP 325MG (Hydrocodon-Acetaminophen 5-325) 1 TAB PO BID Ranitidine Hcl (Zantac) 150 MG PO BID Ascorbic Acid (Vitamin C) 1,000 MG PO DAILY ARGININE/GLUTAMINE/CALCIUM HMB ([place]) 1 PDR PO BID Txs and Procedures Treatments and Procedures: Percutaneous endoscopic gastrostomy tube placement Labs: Laboratory Tests 09/10/16 0630: Sodium 147 H, Potassium 3.4 L, Chloride 109 H, Carbon Dioxide 28, BUN 30 H, Creatinine 0.4 L, Estimated Creat Clear 214 H, Estimated GFR (MDRD) 217, Glucose 71 L, Calcium 8.9, WBC 6.4, RBC 4.11 L, Hgb 13.5 L, Hct 42.0, MCV 102.1 H, RDW 13.9, Plt Count 269, MPV 6.9 L, Gran % 63.0, Gran # 4.0, Lymphocytes % 28.4, Monocytes % 6.0, Eosinophils % 2.2, Basophils % 0.4, Lymphocytes # 1.8, Monocytes # 0.4, Eosinophils # 0.1, Basophils # 0.0, PUBS MCHC 32.3, MCH 33.0 H 09/09/16 0945: Sodium 144, Potassium 3.6, Chloride 106, Carbon Dioxide 32, BUN 27 H, Creatinine 0.3 L, Estimated Creat Clear 274 H, Estimated GFR (MDRD) 303, Glucose 96, Calcium 9.2, Total Bilirubin 0.3, AST 25, ALT 28, Alkaline Phosphatase 94, Creatine Kinase 64, CK-MB (CK-2) Rel Index 5.6 H, CK and CKMB Interp 3.6, Troponin I 0.04, Total Protein 7.8, Albumin 3.0 L, Globulin 4.8 H, Albumin/Globulin Ratio 0.6 L, WBC 6.9, RBC 4.51 L, Hgb 14.7, Hct 45.8, MCV 101.6 H, RDW 13.9, Plt Count 276, MPV 7.0 L, Gran % 55.3, Gran # 3.8, Lymphocytes % 33.5, Monocytes % 6.5, Eosinophils % 4.2, Basophils % 0.4, Lymphocytes # 2.3, Monocytes # 0.5, Eosinophils # 0.3, Basophils # 0.0, PUBS MCHC 32.2, MCH 32.7 H, Urine Color YELLOW, Urine Appearance CLOUDY, Urine pH 7.0, Ur Specific [place] 1.010, Urine Protein NEGATIVE, Urine Ketones NEGATIVE, Urine Blood TRACE-INTACT, Urine Nitrate NEGATIVE, Urine Bilirubin NEGATIVE, Urine Urobilinogen 1.0, Ur Leukocyte Esterase NEGATIVE, Urine RBC OCC, Urine WBC 3-5, Urine Bacteria 4+, Urine Mucus OCC, Urine Glucose NEGATIVE 09/09/16 0915: Phenytoin 43.5 *H, Valproic Acid < 0.7 *L Microbiology Date/Time Procedure - Status Source Growth 09/09 944 Urine Culture - [place] 0751
[2016-09-11 18:22] VITALS: BP 138/74
== END 2016-09-11 18:04 ==
LOC: ER 09:18 → 2ND 10:55 → ER 10:55 → 2ND 11:33
PROVIDERS: Emergency Medicine; Surgery
PROC: 0DH63UZ Insertion of Feeding Device into Stomach, Percutaneous Approach (ICD-10-PCS; principal; 2016-09-10 07:00)
DX: R13.10 Dysphagia, unspecified (principal); R63.3 Feeding difficulties; I10 Essential (primary) hypertension; Z87.891 Personal history of nicotine dependence; I50.9 Heart failure, unspecified; R56.9 Unspecified convulsions; N39.0 Urinary tract infection, site not specified
CPT/HCPCS: G0378